=== PATIENT | female | born 1960 | race Hispanic/Latino ===

== ENCOUNTER 2021-03-19 10:17 | Emergency (ER) | payer OTHER, SELFPAY ==
[2021-03-19 10:30] VITALS: BP 158/71; PULSE 75; RESP 16; TEMP 36.6; O2SAT 99
--- NOTE | 2021-03-19 10:32 | ED.ABDPAIN ---
HPI - Abdominal Pain General Chief Complaint: Abdominal Pain Stated Complaint: abd pain Time Seen by Provider: 03/19/21 10:32 Source: patient and RN notes reviewed Mode of arrival: ambulatory Limitations: no limitations History of Present Illness HPI narrative: 60-year-old female presents to the [facility] with complaints of epigastric to just above umbilicus abdominal pain since yesterday. Had tried taking Tums with no relief. Also complains of bilateral arm and calf pain. Patient denies any past medical or surgical history. Had not seen a doctor in many years. Related Data Home Medications Medication Instructions Recorded Confirmed No Home Medications 03/19/21 03/19/21 Allergies Allergy/AdvReac Type Severity Reaction Status Date / Time No Known Allergies Allergy Verified 03/19/21 11:01 Review of Systems Review of Systems: All systems reviewed & are unremarkable except as noted in HPI and below Constitutional: Constitutional: Reports no additional constitutional complaints, Denies chills and Denies fever(s) Eyes: Eyes: Reports no additional eye complaints ENT: Reports system reviewed and no additional complaints, except as documented Cardiovascular: Cardiovascular: Reports no additional cardiovascular complaints and Denies chest pain Respiratory: Respiratory: Reports no additional respiratory complaints, Denies cough and Denies dyspnea Gastrointestinal: Gastrointestinal: Reports as per HPI, Reports abdominal pain, Denies nausea and Denies vomiting Genitourinary: Genitourinary: Reports no additional female genitourinary complaints Musculoskeletal: Musculoskeletal: Reports as per HPI, Denies back pain and Reports muscle cramps (Bilateral calfs and upper arms) Integumentary/Breasts: Skin/Breast: Reports system reviewed and no additional complaints, except as docu Neurologic: Reports system reviewed and no additional complaints, except as documented, Denies dizziness, Denies headache(s), Denies focal weakness and Denies numbness Psychiatric: Psychiatric: Reports no additional psychiatric complaints Allergic/Immunologic: Allergic/Immunologic: Reports no additional allergic/immunologic complaints [facility] Past Medical History Medical History (Updated 03/19/21 @ 13:59 by Samantha Rubin) No significant medical problems Surgical History Surgical History (Updated 03/19/21 @ 13:59 by Samantha Rubin) No significant past surgical history Comments Patient has not seen a doctor in many years. At the time of my signature, I reviewed and agree with the nursing past medical, surgical, social, and family history. There is no relevant family history pertinent to the patient complaint. Exam Const: General: healthy appearing, no acute distress and alert Nutritional Appearance: well nourished Orientation/consciousness: patient oriented x3 HENMT: Head: normal to inspection Eyes: Pupils: Equal, round and reactive pupils present Neck: Neck: normal visual inspection, no lymphadenopathy and no meningeal signs Chest: Chest palpation & inspection: normal inspection of the chest Resp: Effort & Inspection: normal respiratory effort and no use of accessory muscles Auscultation: clear to auscultation bilaterally, no crackles, no rales, no rhonchi and no wheezes Cardio: Rate: regular rate Rhythm: regular rhythm GI: GI Palp: Yes Soft to palpation, Yes Tenderness to palpation present (GI), No Guarding due to palpation present (GI), Yes Pulsatile mass present and No Rebound tenderness present Auscultation: normal bowel sounds : General: Yes no CVA tenderness Back/Spine/Pelvis: Back: no CVA tenderness Skin: General skin exam: normal color Rashes: no rashes Wounds: no wounds Neuro: General: patient oriented x3, moves all extremities, no meningeal signs and no focal motor deficits Speech: normal speech Gait exam (Neuro): Normal gait present Extrem: General: normal to inspection Psych: Appearance: grossly no
--- NOTE | 2021-03-19 12:06 | PC.NURSE ---
1140- [employer] was going to give pt a white slider med for epigastric pain but decided to transfer to ed, so meds wasted.
== END 2021-03-19 10:56 | disposition short-term general hospital (02) ==
LOC: EXPCOLL 10:24
PROVIDERS: Emergency Provider Nurse Practitioner
DX: R10.13 Epigastric pain (principal)
CPT/HCPCS: 99202; A9270; G0463

== ENCOUNTER 2021-03-19 11:23 | Emergency (ER) | payer OTHER, SELFPAY ==
[2021-03-19] VITALS (8 sets, daily range): BP systolic 148–162; BP diastolic 72–90; PULSE 75–82; RESP 16–17; TEMP 36.8–37.3; O2SAT 95–100
--- NOTE | ~2021-03-19 | CT_ITS ---
EXAMINATION: CT abdomen pelvis w con INDICATION: Epigastric pain TECHNIQUE: Computed tomographic images of the abdomen and pelvis were obtained after the administrati on of 100 cc of Omnipaque 350 intravenous contrast. The dose-length product (DLP) was 386.88 mGy-cm. Automated exposure control and iterative reconstruction technique were employed. COMPARISON: None available FINDINGS: The lung bases are clear. The heart size is normal. The liver is diffusely low in attenuati on when compared with the spleen, consistent with hepatic steatosis. The spleen, pancreas, and adrena l glands are normal cholelithiasis is noted. The left kidney is unremarkable. 4 mm hypoattenuating le monique of the right kidney is too small to characterize but likely represents a cyst. No pathologically enlarged abdominal or pelvic lymph nodes are identified. There is no free intraperitoneal gas or ladarius dence of bowel obstruction. There is mild lumbar spondylosis. There is mild circumferential wall thic kening of the urinary bladder. IMPRESSION: 1. Cholelithiasis. 2. Diffuse hepatic steatosis. 3. Mild wall thickening of the urinary bladder which could reflect cystitis. Reviewed, dictated and finalized at location B.
[2021-03-19 12:05] LABS: Basophils Percent Auto 0.2 % (0.2-1.2); Eosinophils Percent Auto 0.1 % (0-4.4); Hematocrit 44.9 % (37.0-47.0); Hemoglobin 15.8 g/dL (12.0-15.0); Immature Granulocyte Absolute 0.08 K/mm3 (0.00-0.031); Immature Granulocyte Percent A 0.5 % (0-0.5); Lymphocytes Absolute Auto 2.18 K/mm3 (0.9-3.2); Lymphocytes Percent Auto 13.3 % (18.3-44.2); Mean Corpuscular HGB Conc 35.2 g/dl (32-36); Mean Corpuscular Hemoglobin 30.2 pg (26-34); Mean Corpuscular Volume 85.9 fl (80-100); Mean Platelet Volume 9.7 fl (7.4-10.4); Monocytes Absolute Auto 0.7 K/mm3 (0.1-0.6); Monocytes Percent Auto 4.3 % (2.6-8.5); Neutrophils Absolute Auto 13.4 K/mm3 (1.3-6.7); Neutrophils Percent Auto 81.6 % (45.5-73.1); Platelet Count Result 273 k/mm3 (150-375); Red Blood Count 5.23 M/mm3 (4.2-5.4); Red Cell Distribution Width 12.2 % (11.5-14.5); White Blood Count 16.4 K/mm3 (4.5-10.0)
[2021-03-19 12:15] LABS: Alanine Aminotransferase 56 U/L (4-35); Alkaline Phosphatase 92 U/L (38-126); Anion Gap 9 mmol/L (8-16); Aspartate Amino Transferase 35 U/L (14-36); Blood Urea Nitrogen 6 mg/dL (7-17); Calcium 10.4 mg/dL (8.4-10.2); Carbon Dioxide 32 mmol/L (22-30); Chloride 99 mmol/L (98-107); Estimated CRCL calculation 84 ml/min; Estimated Glomerular Filt Rate > 60; Glucose 147 mg/dL (65-110); Lipase 33 U/L (23-300); Potassium 4.2 mmol/L (3.4-5.0); Sodium 140 mmol/L (137-145)
[2021-03-19 12:36] LABS: Add Urine Microscopic? YES; Appearance Urine Clear (Clear); Bilirubin Urine Negative (Negative); Blood Urine 1+ (Negative); Color Urine Straw (Yellow); Glucose Urine UA Negative (Negative); Ketones Urine Negative (Negative); Leukocyte Esterase Ur Negative LEU/UL (Negative); Nitrate Urine Negative (Negative); Protein Urine 1+ mg/dL (Negative); RBC Urine 0-2 /hpf (0-2); Urobilinogen Urine Negative mg/dL (<2.0); WBC Urine 0-3 /hpf
[2021-03-19 12:48] LABS: Specific Grav Ur 1.003 (1.001-1.035)
--- NOTE | 2021-03-19 17:06 | ED.ABDPAIN ---
HPI - Abdominal Pain General Chief Complaint: Abdominal Pain Stated Complaint: Abd pain Time Seen by Provider: 03/19/21 15:37 Source: patient and RN notes reviewed Mode of arrival: ambulatory Limitations: no limitations History of Present Illness HPI narrative: Patient is 60 years old female complaining of epigastric pain starting yesterday. Patient reported the pain is aching, denies radiation, nausea, vomiting, fever, chills, chest pain, shortness of breath, urinary symptoms, vaginal bleeding or discharge. Patient is fully vaccinated for COVID-19. Related Data Allergies Allergy/AdvReac Type Severity Reaction Status Date / Time No Known Allergies Allergy Verified 03/19/21 15:42 Review of Systems Review of Systems: CONSTITUTIONAL: Denies fever, chills, or sweats. EYES: Denies visual changes, redness, or discharge. ENT: Denies rhinorrhea, congestion, sore throat, or otalgia. CARDIOVASCULAR: Denies chest pain, palpitations, or edema. RESPIRATORY: Denies cough or dyspnea. GASTROINTESTINAL: Epigastric pain GENITOURINARY: Denies dysuria or hematuria. SKIN: Denies rash or itching. MUSCULOSKELETAL: Denies back pain, joint pain, or myalgia. NEUROLOGIC: Denies headache, numbness, or weakness. PSYCHIATRIC: Denies anxiety or depression. PMFSH Past Medical History Medical History No significant medical problems Surgical History Surgical History No significant past surgical history Exam Narrative: General appearance: Well-developed, well-nourished Skin: Normal color Head: Normocephalic, nontraumatic Eyes: Clear conjunctiva ENT: Oropharynx normal, ears normal, nose normal Neck: Supple, nontender Chest and respiratory: Airway patent, no respiratory distress, no accessory muscle use Heart: Regular rate/rhythm Abdomen: Soft, mild tenderness epigastric area. No guarding or rebound. No organomegaly, quiet bowel sounds Vascular: Normal peripheral pulses, normal capillary refill. Musculoskeletal: Normal range of motion, nontender back Neurologic: Alert and oriented ?3, SHANK INSPECTOR is normal as tested, no gross motor deficit Course Course Emergency Course: Stable Vital Signs Vital signs: Vital Signs Temperature 36.8 C 03/19/21 11:45 Pulse Rate 82 03/19/21 11:45 Respiratory Rate 16 03/19/21 11:45 Blood Pressure 154/72 H 03/19/21 11:45 Pulse Oximetry 98 03/19/21 11:45 Temperature 37.3 C 03/19/21 15:35 Pulse Rate 77 03/19/21 15:35 Respiratory Rate 16 03/19/21 15:35 Blood Pressure 162/81 H 03/19/21 15:35 Pulse Oximetry 97 03/19/21 15:35 MDM - Abdominal Pain MDM Narrative Medical decision making narrative: Epigastric pain Differential diagnosis as below. Labs, IV fluid, UA, CT abdomen pelvis with IV contrast. Work-up showed no significant findings to explain patient condition. Leukocytosis of unknown etiology at this time. I plan to discharge patient home on Protonix and Bentyl for possible GERD or stress related symptoms. Differential Diagnosis Differential diagnosis: Likely constipation, diverticulitis, gastroenteritis, pancreatitis and other (Gallbladder pathology) Lab Data Result diagrams: 03/19/21 11:56 03/19/21 11:56 Labs: Lab Results 03/19/21 03/19/21 03/19/21 Range/Units 11:56 11:56 12:19 WBC 16.4 H (4.5-10.0) K/mm3 RBC 5.23 (4.2-5.4) M/mm3 Hgb 15.8 H (12.0-15.0) g/dL Hct 44.9 (37.0-47.0) % MCV 85.9 (80-100) fl MCH 30.2 (26-34) pg MCHC 35.2 (32-36) g/dl RDW 12.2 (11.5-14.5) % Plt Count 273 (150-375) k/mm3 MPV 9.7 (7.4-10
[2021-03-19] MEDS: BELLADONNA ALK/PHENOB ELIX 10 ML, MAG HYDROX/ALUMINUM HYD/SIMETH 30 ML, LIDOCAINE HCL 2... PO (17:59)
== END 2021-03-19 19:40 | disposition home or self-care (01) ==
PROVIDERS: Emergency Medicine; Emergency Provider Emergency Medicine
DX: R10.13 Epigastric pain (principal)
CPT/HCPCS: 36415; 74177; 80053; 81001; 81025; 83690; 85025; 99284; A9270; Q9967

== ENCOUNTER 2022-04-15 15:20 | Emergency (ER) | payer OTHER, SELFPAY ==
[2022-04-15 15:30] VITALS: BP 142/69; PULSE 94; RESP 12; TEMP 36.6; O2SAT 98
--- NOTE | 2022-04-15 15:57 | ED.GENADULT ---
HPI - General Adult General Stated complaint: injury Time Seen by Provider: 04/15/22 15:57 Source: patient Mode of arrival: ambulatory Limitations: no limitations History of Present Illness HPI narrative: 61 y/o female presented for c/o left ear pain for 2 weeks. Endorses muffled hearing and tickling sensation, and popping when yawning or swallowing. States she has been to [place] recently and swam in the ocean. Denies tinnitus, dizziness, vomiting or fever. Taking otc drops for symptoms. Related Data Allergies Allergy/AdvReac Type Severity Reaction Status Date / Time No Known Allergies Allergy Verified 04/15/22 15:28 Review of Systems Review of Systems: CONSTITUTIONAL: Denies malaise, chills, or fever. EYES: Denies visual changes, redness, or discharge. ENT: Denies rhinorrhea, congestion, sinus pain, and sore throat. Reports ear pain CARDIOVASCULAR: Denies chest pain, palpitations, or edema. RESPIRATORY: Denies cough or dyspnea. GASTROINTESTINAL: Denies abdominal pain, nausea, vomiting, diarrhea SKIN: Denies rash or itching. MUSCULOSKELETAL: Denies myalgia. NEUROLOGIC: Denies headache. All systems reviewed & are unremarkable except as noted in HPI and below PMFSH Past Medical History Medical History No significant medical problems Surgical History Surgical History No significant past surgical history Comments At time of signature, agree with nursing past medical, surgical, social and family history. There is no relevant family history pertinent to the presenting complaint Exam Narrative: GENERAL: Well-appearing, well-nourished, and in no acute distress. HEAD: Normocephalic EYES: PERRLA, conjunctivae clear ENT: Nares clear. Mucous membranes moist. right TM pearly pendleton with dull light reflex; left TM retracted with clear fluid levels, canal erythematous c/w serous OM; no tragal tenderness. Oropharynx not erythematous without lesions. NECK: Supple. No lymphadenopathy CHEST: Clear to auscultation, breath sounds equal. HEART: Regular rate and rhythm. No murmur heard. SKIN: Warm, dry, no rash. NEURO: Alert and oriented x3. PSYCH: Normal mood and affect Course Course Emergency Course: Patient is aware of diagnosis, understands and agrees to treatment plan. Anticipatory guidance given. Patient agrees to follow-up as directed and is aware of reasons to seek care at the emergency department. Portions of this record may have been created with voice recognition software Level of Care: Express Care Visit Vital Signs Vital signs: Reviewed Medical Decision Making MDM Narrative Medical decision making narrative: Advised supportive measures and signs/symptoms to go to the ER. Pt is appropriate for outpt treatment and f/u. Differential Diagnosis Differential Diagnosis: Coronavirus, strep pharyngitis, allergic rhinitis, upper respiratory tract infection, sinusitis, rhinosinusitis, nasopharyngitis, viral pharyngitis, otitis media, otitis externa, eustachian tube dysfunction, foreign body, cerumen impaction. Discharge Plan Discharge Clinical Impression: Otitis media Qualifiers: Otitis media type: serous Chronicity: acute Laterality: left Recurrence: non-recurrent Qualified Code(s): H65.02 - Acute serous otitis media, left ear Patient Disposition: Home, Self-Care Condition: Stable Instructions: Antibiotic Form, Fluid In The Ear (Serous Otitis Media) (ED) Additional Instructions: Recommend Flonase spray (do not take when taking Afrin spray) Daily Zyrtec (or Claritin/Yadira) Tylenol 1000mg every 8 hours as needed for pain, alternate with ibuprofen 600 mg Symptomatic treatment includes: rest, fluids, and increase humidity of the air at home. If no improvement with the above measures start the antibiotic Follow up with your primary care provider as needed in 1-2 weeks Go to the ER for worsening symptoms or co
== END 2022-04-15 16:12 | disposition home or self-care (01) ==
PROVIDERS: Emergency Provider Nurse Practitioner Family; Referring Provider Family Medicine
DX: H65.02 Acute serous otitis media, left ear (principal)
CPT/HCPCS: 99213; G0463